=== PATIENT | male | born 1945 | race Caucasian/White ===

== ENCOUNTER 2016-07-17 17:17 | Observation (INO) | payer BC ==
[2016-07-17] MEDS ORDERED: ALBUTEROL SULFATE/IPRATROPIUM 3 ML NEBU IH ONE ×3 (17:19→17:28)
[2016-07-17] MEDS ORDERED: METHYLPREDNISOLONE SOD SUCC/PF 40 MG/ML VIAL IV ONE (17:28)
[2016-07-17] MEDS ORDERED: ALBUTEROL SULFATE 2.5 MG/3 ML VIAL.NEB IH ONE (17:43)
[2016-07-17] MEDS ORDERED: METHYLPREDNISOLONE SOD SUCC/PF 40 MG/ML VIAL ONE (17:48)
[2016-07-17] MEDS ORDERED: ALBUTEROL SULFATE 2.5 MG/0.5 ML VIAL.NEB IH ONE (17:49)
[2016-07-17 18:04] LABS: INR 0.96 INR (0.90-1.10)
[2016-07-17 18:10] LABS: Albumin * 3.9 gm/dl (3.4-5.0); Anion Gap 13.5 mmol/L (6.8-13.8); BUN/Creatinine Ratio 12.5 (9.0-21.6); Bilirubin, Total 0.2 mg/dL (0.0-1.1); Ca. Corrected For Albumin 9.5 mg/dL (8.4-10.2); Calcium * 9.7 mg/dL (7.9-10.9); Carbon Dioxide 27.1 mmol/L (24-32.6); Potassium 4.6 mmol/L (3.4-4.6); Total Protein 8.2 gm/dL (6.2-8.2)
[2016-07-17 18:13] LABS: Troponin I 0.07 ng/ml (0.00-0.10)
--- NOTE | 2016-07-17 18:35 | ERNOTE ---
Dyspnea - Date Date of Service: 07/17/16 - General Presenting Symptoms: shortness of breath Time Seen by Provider: 07/17/16 17:27 Source: patient, family Exam Limitations: clinical condition - Immun/Allergies/Home Medications Immunizations: IMMUNIZATION HX Immunizations Up to Date Yes History of Influenza Vaccine Yes Hx Pneumococcal Vaccination Yes Allergies/Adverse Reactions: Allergies Penicillins Allergy (Unknown, Verified 07/17/16 18:15) Sulfa (Sulfonamide Antibiotics) Allergy (Unknown, Verified 07/17/16 18:15) Home Medications: HOME MEDICATIONS Cholecalciferol (Vitamin D3) [Vitamin D3] 2,000 unit PO DAILY 12/01/14 [Last Taken Unknown] Tiotropium [place] [Spiriva] 18 mcg IH DAILY 12/01/14 [Last Taken Unknown] Sertraline HCl [Zoloft] 150 mg PO DAILY #60 tablet 12/04/14 [Last Taken Unknown] Simvastatin [Zocor] 40 mg PO HS #90 tablet 12/04/14 [Last Taken Unknown] Roflumilast [Daliresp] 500 mcg PO DAILY #30 tablet 12/28/14 [Last Taken Unknown] predniSONE [Prednisone] 40 mg PO DAILY #7 tablet 12/28/14 [Last Taken Unknown] Advair 250-50 Diskus 07/17/16 [Last Taken Unknown] Atenolol [Tenormin] 50 mg PO BID 07/17/16 [Last Taken Unknown] Diltiazem HCl [Cardizem Cd] 240 mg PO BID 07/17/16 [Last Taken Unknown] Fluticasone/Salmeterol [Advair 500-50 Diskus] 1 puff IH BID 07/17/16 [Last Taken Unknown] Vit D3-Vit K/[place]/Hops [Ostera Tablet] 1 each PO 07/17/16 [Last Taken Unknown] - History of Present Illness Narrative: Patient presents to the ED for SOB via EMS. He relates he has COPD and uses home oxygen at night. He was building a [employer] and was exposed to the smoke and dust from the woodwork on Sunday. Ever since then he has been having increasing SOB. No CP. No fever. No abdominal pain. No bleeding, blood in stool or vomit. He has had this happen in the past and had to be placed on BiPap once in the past. He has not seen anyone else for this. He states he feels anxious right now which happens when his breathing gets bad. Severity: severe Treatment REGISTERED NURSE NURSERY: paramedics Initiating event: Reports: exposure to smoke Frequency of episodes: Reports: occassional episodes Modifying Factors - (Improves): Reports: albuterol Modifying Factors (Worsens): Reports: activity Associated Symptoms-Dyspnea: Reports: wheezing. Denies: fever/chills, chest pain/discomfort, ankle/leg swelling Prior Treatment: Denies: recently seen Review of Systems - Review of Systems Constitutional: Absent: fever Respiratory: Present: See HPI Cardiology: Absent: chest pain Gastrointestinal/Abdominal: Absent: abdominal pain All Other Systems: All systems neg except as marked - Patient's Past Medical History Patient History - Medical: Anemia, Alcohol Abuse, Anxiety, Depression Patient History - Cardiac/Respiratory: Atrial Fibrillation, COPD, Hypertension, Home O2 Use Patient History - Cancer: No Hx of Cancer Patient History - Surgical Procedures: No surgical history Patient History - Other: None - Family History Father Family History - Medical: Mother Family History - Medical: Family History - Cardiac/Respiratory: Coronary Heart Disease - Social History Living Situations: home Abuse History: No History of abuse Psych History: Hx of Anxiety Smoking Status: Former smoker Alcohol Use: heavy Drug Use: none - Immunizations Immunizations Up to Date: Yes Hx Pneumococcal Vaccination: Yes History of Influenza Vaccine: Yes Physical Exam - Physical Exam General Appearance: Present: alert, moderate distress Eye Exam: Normal inspection: bilateral, PERRL: bilateral Ears, Nose, Throat: Present: normal ENT inspection Neck: Present: normal inspection Respiratory: Present: respiratory distress, accessory muscle use, wheezing. Absent: stridor Cardiovascular/Chest: Present: normal peripheral pulses, tachycardia Gastrointestinal/Abdominal: Present: normal bowel sounds, nondistended, soft Back Exam: Present: normal range of motion Extremity Exam: Present: normal inspection, other - No findings of DVT. Neurological Exam: Present: alert, no motor/sensory deficits Skin Exam: Present: normal color. Absent: skin rash ED Progress - Results and Orders Patient's Lab Results:: I have reviewed the patient's lab results. - Vital Signs Patient's Vital Signs:: I have reviewed the patient's vital signs. Vital Signs: Vital Signs 07/17/16 07/17/16 07/17/16 17:20 17:30 17:43 Temperature 37.5 C Pulse Rate 104 H 102 H 96 Respiratory 29 H 27 H 25 H Rate Blood Pressure 184/109 175/88 O2 Sat by Pulse 96 98 98 Oximetry 07/17/16 07/17/16 07/17/16 17:55 18:03 18:12 Temperature Pulse Rate 93 94 91 Respiratory 29 H 26 H 28 H Rate Blood Pressure 175/88 O2 Sat by Pulse 96 95 95 Oximetry 07/17/16 18:21 Temperature Pulse Rate 90 Respiratory 26 H Rate Blood Pressure O2 Sat by Pulse 95 Oximetry - EKG EKG: nonspecific ST T wave changes EKG read: Interp. by me EKG Comments: Sinus tachycardia. Non-specific ST/T wave changes. No STEMI. - X-Ray X-Ray #1 X-Ray: chest Interpretation: Interp. by me, Reviewed by me X-ray Comments: Hyperinfaltion. No PTX noted. No pneumonia - Progress/Reassessment Chief Complaint: Dyspnea Progress:: Improved Progress Note-Subjective: 07/17/16 18:31 patient immediately placed on BiPap. Given steroid and nebs. Significantly improved but still with wheezing throughout. I am not sure if the HGB is accurate. Clinically he has had no bleeding or blood in stool. D/W Hospitalist , I will order a re-check HGB to see if the first one was accurate. Hospitalist will admit, D/W Flora for Dr Sharma. Initially I had placed an order for ICU but bed placement felt floor was appropriate. Clinically he is much improved but still on BiPap. D/W patient and family. Departure Clinical Impression: COPD exacerbation - Departure Disposition: [facility] Condition: Fair Referrals: Emerald Wang MD [Primary Care Provider] -
[2016-07-17 19:40] LABS: Hematocrit 37.3 % (42.0-52.0); Hemoglobin 12.9 gm/dL (13.5-18.0); Mean Corpuscular Hemoglobin 32.2 pg (27-31); Red Blood Count 4.01 M/mm3 (4.7-6.0); White Blood Count 18.7 K/mm3 (4.0-10.5)
[2016-07-17 19:41] LABS: Mean Corpuscular Hgb Conc 34.6 g/dl (32-36); Neutrophil % 84.6 % (42-75.0); Platelet Count 212 K/mm3 (150-450); Red Cell Distribution Width 13.8 % (11.5-14.0)
[2016-07-17 19:42] LABS: Neutrophil # 15.8 K/mm3 (1.3-6.0)
--- NOTE | 2016-07-17 20:41 | HP ---
Chief Complaint - Chief Complaint Date of Service: 07/17/16 Time of Service: 20:05 Chief Complaint: " SOB". Source of HPI- Pt; reliable, Pt's spouse Ben, ER provider notes. History of Present Illness: Mr. Lujan is a 71-yr-old WM pt of Dr. Wang with a PMH of : Alcohol dependence, Anemia, Anxiety, CHF, COPD,Depression, HTN, HLD, &Pseudogout. History is mostly provided by the spouse as pt is on BIPAP and appears fatigued. She states that pt had been feeling good and in his normal state of wellness until this past Sunday. He was in garage most of the day on Sunday working on woodwork projects. He started feeling SOB later on Sunday and thought it was from inhaling saw dust. On Sunday, he continued feeling SOB and he used inhalers round the clock. Today, she says, he continued feeling SOB and the inhaler and breathing treatments were not providing any relief. He got extremely SOB with Wheezing and called the EMS for him and was brought to the [facility] ER. He denies fevers, chills. He denies any recent URI symptoms and has not been around ill contact. He has a non-productive cough but says it's not any worse. He finished a Prednisone course about 2 weeks ago for worsening COPD symptoms. He quit smoking 19 yrs ago. He is chronically on 2 L of oxygen at night. He states that he drinks about 10-12 glasses of hard liquor (Scotch) daily. At the ED today, the CXR did not have any acute cardiopulmonary findings. However, he was noted to have laboured breathing with Exp/insp. Wheezing. His ABGs showed uncompensated Respiratory acidosis and he required to to be placed on BIPAP. His CBC also showed he had an elevated WBC of 18,700 with a Left shift. He had a low grade fever 37.6. At the time of physical exam, he is noted to tolerate the BIPAP well, is in no distress, but has exp/ins. wheezing throughout in his Lungs. He will be admitted under observation status due to his exacerbation of his COPD. - Patient's Past Medical History Patient History - Medical: Alcohol Abuse, Anxiety, Depression, Other - Pseudogout Patient History - Cardiac/Respiratory: Atrial Fibrillation, CHF, COPD, Hypertension, Hyperlipidemia, Home O2 Use Patient History - Cancer: No Hx of Cancer Patient History - Surgical Procedures: No surgical history Patient History - Other: None - Family History Father Family History - Medical: Family History - Cancer: Lung Mother Family History - Medical: Family History - Cardiac/Respiratory: Coronary Heart Disease - Social History Living Situations: spouse Abuse History: No History of abuse Psych History: Hx of Anxiety, Hx of Depression Smoking Status: Former smoker Have you smoked in the past 12 months: No Do you dip or chew tobacco: No Patient requests Smoking Cessation Consult: No Initiate information on Smoking Cessation: No Alcohol Use: heavy Drug Use: none - Immunizations Immunizations Up to Date: Yes Hx Pneumococcal Vaccination: Yes History of Influenza Vaccine: Yes Review Of Systems (GEN) - Review of Systems Generalized/Overall Review: Present: Fatigue. Absent: Weakness, Chills, Fever EENTM: Absent: Eye Pain Respiratory: Present: Cough, Shortness of Breath, Wheezing. Absent: Orthopnea, Stridor Cardiac: Absent: Chest Pain, Edema, Palpitations, Syncope Abdominal: Absent: Nausea, Vomiting, Hematemesis, Abdominal Pain Genitourinary: Absent: Burning, Itching, Urgency, Frequency, Hesitancy, Nocturia , Hematuria Musculoskeletal: Present: Gout. Absent: Joint Pain, Back Pain Neurological: Absent: Headache, Anxiety, Depressed Skin: Absent: Dryness, Lesions, Lumps Endocrine: Present: Intolerance to Heat, Flushing. Absent: Increased Thirst Misc: All systems neg except as marked Immunizations: IMMUNIZATION HX Immunizations Up to Date Yes History of Influenza Vaccine Yes Hx Pneumococcal Vaccination Yes Allergies/Adverse Reactions: Allergies Allergy/AdvReac Type Severity Reaction Status Date / Time Penicillins Allergy Unknown Verified 07/17/16 19:13 Sulfa (Sulfonamide Allergy Unknown Verified 07/17/16 19:13 Antibiotics) Home Medications: HOME MEDICATIONS Cholecalciferol (Vitamin D3) [Vitamin D3] 2,000 unit PO DAILY 12/01/14 [Last Taken Unknown] Tiotropium [place] [Spiriva] 18 mcg IH DAILY 12/01/14 [Last Taken Unknown] Sertraline HCl [Zoloft] 150 mg PO DAILY #60 tablet 12/04/14 [Last Taken Unknown] Simvastatin [Zocor] 40 mg PO HS #90 tablet 12/04/14 [Last Taken Unknown] Roflumilast [Daliresp] 500 mcg PO DAILY #30 tablet 12/28/14 [Last Taken Unknown] Atenolol [Tenormin] 50 mg PO BID 07/17/16 [Last Taken Unknown] Cyanocobalamin (Vitamin B-12) [Vitamin B12] 1,000 mcg PO DAILY 07/17/16 [Last Taken Unknown] Diltiazem HCl [Cardizem Cd] 240 mg PO BID 07/17/16 [Last Taken Unknown] Fluticasone/Salmeterol [Advair 500-50 Diskus] 1 puff IH BID 07/17/16 [Last Taken Unknown] Naltrexone HCl [ReVia] 25 mg PO DAILY 07/17/16 [Last Taken Unknown] predniSONE [Prednisone] See Taper PO DAILY 07/17/16 [Last Taken Unknown] Exam - Exam Vital Signs: Vital Signs - Last Taken Temp 37.6 C H 07/17/16 18:59 Pulse 83 07/17/16 18:59 Resp 24 H 07/17/16 18:59 BP 132/57 07/17/16 18:59 Pulse Ox 96 07/17/16 18:59 Constitutional: Present: Alert, Oriented x3, No distress ENT Exam: Present: normal ENT inspection. Absent: nasal congestion, nasal drainage, pharyngeal erythema Eye Exam: bilateral eye: normal inspection, PERRL Neck: Present: full range of motion, supple, normal inspection Back Exam: Present: no CVA tenderness Breasts: Present: Exam deferred Respiratory: Present: no accessory muscle use, wheezing, expiration (prolonged) , inspiration Cardiovascular/Chest: Present: normal peripheral pulses, regular rate, rhythm, no edema, no murmur Abdomen: Present: Normal bowel sounds, soft, nontender /Rectal: Present: Exam deferred Extremity: Present: normal range of motion, non-tender, normal inspection, no pedal edema Skin Exam: Present: no cyanosis, diaphoresis Neurologic: Present: alert, oriented x 3. Absent: dizzy/light-headedness Appearance: Present: appropriate appearance, appropriate insight Eye contact: Present: cooperative, good eye contact, normal speech Thoughts: Present: no apparent hallucination Diagnostic Studies: Abnormal Lab Results 07/17/16 Range/Units 18:30 Hgb 11.7 L (13.5-18.0) gm/dL Laboratory Results WBC 18.7 K/mm3 (4.0-10.5) H 07/17/16 17:40 RBC 4.01 M/mm3 (4.7-6.0) L 07/17/16 17:40 Hgb 11.7 gm/dL (13.5-18.0) L 07/17/16 18:30 Hct 37.3 % (42.0-52.0) L 07/17/16 17:40 MCV 93.0 fl (78-100) 07/17/16 17:40 MCH 32.2 pg (27-31) H 07/17/16 17:40 MCHC 34.6 g/dl (32-36) 07/17/16 17:40 RDW 13.8 % (11.5-14.0) 07/17/16 17:40 Plt Count 212 K/mm3 (150-450) 07/17/16 17:40 MPV 9.0 fl (6.0-9.5) 07/17/16 17:40 Immature Gran % (Auto) 1.10 % (0.001-0.429) H 07/17/16 17:40 Immature Gran # (Auto) 0.20 K/mm3 (0.000-0.0310) H 07/17/16 17:40 Neutrophils % 84.6 % (42-75.0) H 07/17/16 17:40 Lymphocytes % 4.4 % (20-51) L 07/17/16 17:40 Monocytes % 5.4 % (0.0-9) 07/17/16 17:40 Eosinophils % 4.0 % (0.0-3.0) H 07/17/16 17:40 Basophils % 0.5 % (0.0-1.0) 07/17/16 17:40 Nucleated RBC % 0.0 k/mm3 (0-1) 07/17/16 17:40 Neutrophils # 15.8 K/mm3 (1.3-6.0) H 07/17/16 17:40 Lymphocytes # 0.8 k/mm3 (1.5-3.5) L 07/17/16 17:40 Monocytes # 1.0 k/mm3 (0.0-1.0) 07/17/16 17:40 Eosinophils # 0.8 k/mm3 (0.0-0.7) H 07/17/16 17:40 Absolute Basophils 0.1 k/mm3 (0.0-0.1) 07/17/16 17:40 PT 10.0 Seconds (9.4-11.4) 07/17/16 17:40 INR (Anticoag Therapy) 0.96 INR (0.90-1.10) 07/17/16 17:40 pCO2 49.5 mmHg (35.0-48.0) H 07/17/16 17:35 pO2 131.4 mmHg (83.0-108.0) H 07/17/16 17:35 HCO3 22.7 mmol/L (21.0-28.0) 07/17/16 17:35 Total CO2 24.2 mmol/L (19.0-24.0) H 07/17/16 17:35 Base Excess -4.3 mmol/L (-2.0-3.0) L 07/17/16 17:35 ABG pH 7.28 (7.35-7.45) L 07/17/16 17:35 ABG O2 Sat (Measured) 98.2 % (94.0-98.0) H 07/17/16 17:35 Sodium 135 mmol/L (132-142) 07/17/16 17:40 Plasma Sodium 135 mmol/L (130-142) 07/17/16 17:40 Potassium 4.6 mmol/L (3.4-4.6) 07/17/16 17:40 Chloride 99 mmol/L (97-106) 07/17/16 17:40 Carbon Dioxide 27.1 mmol/L (24-32.6) 07/17/16 17:40 Anion Gap 13.5 mmol/L (6.8-13.8) 07/17/16 17:40 BUN 13 mg/dL (6-23) 07/17/16 17:40 Creatinine 1.04 mg/dL (0.4-1.4) 07/17/16 17:40 Est GFR (Non-Af Amer) 75 mL/min (60-130) D 07/17/16 17:40 BUN/Creatinine Ratio 12.5 (9.0-21.6) 07/17/16 17:40 Random Glucose 116 mg/dL (70-110) H 07/17/16 17:40 Calcium 9.7 mg/dL (7.9-10.9) 07/17/16 17:40 Calcium Adj for Albumin 9.5 mg/dL (8.4-10.2) 07/17/16 17:40 Total Bilirubin 0.2 mg/dL (0.0-1.1) 07/17/16 17:40 AST 18 U/L (0-48) 07/17/16 17:40 ALT 24 U/L (19-67) 07/17/16 17:40 Alkaline Phosphatase 64 U/L (50-170) 07/17/16 17:40 Troponin I 0.070 ng/ml (0.00-0.10) 07/17/16 17:40 Total Protein 8.2 gm/dL (6.2-8.2) 07/17/16 17:40 Albumin 3.9 gm/dl (3.4-5.0) 07/17/16 17:40 Blood Type O Positive 07/17/16 18:30 Antibody Screen Negative 07/17/16 18:30 Assessment/Plan - Assessment/Plan (1) COPD exacerbation Assessment: Mr. Lujan reported dyspnea that was out of his normal variation, was noted to have laboured breathing and he required to be placed on BIPAP due to Uncompensated Respiratory acidosis on the ABGs. He received treatment with Solumedrol at the ED. The CXR did not show any new infiltrate, however, he had an elevated WBC with a left shift. He also had a low grade fever of 37.6. Given his considerable comorbidities, age, current alcohol use, elevated WBC with a left shift, It may be beneficial to cover him with IV antibiotics to prevent progression to Pneumonia. Will also start solumedrol due to exp/ins. wheezing, and scheduled duoneb treatments. Will repeat ABGs & trend CBC in am. Problem: Acute (2) Uncompensated respiratory acidosis Assessment: Will administer oxygen to maintain SaO2 of 88-92%. Will stay on the BIPAP the rest of the night and recheck ABGs in am. Problem: Acute (3) A-fib Assessment: Place on remote telemetry monitoring- Continue Diltiazem. Problem: Chronic (4) Alcohol dependence Assessment: Will monitor for withdrawals- give PRN medications. Problem: Acute (5) Dependence on supplemental oxygen Assessment: Is chronically on 2 L at night. Problem: Chronic (6) Hypertension Assessment: Stable- On Atenolol. Problem: Chronic Qualifiers: Hypertension type: essential hypertension Qualified Code(s): I10 - Essential (primary) hypertension
[2016-07-17] MEDS ORDERED: SIMVASTATIN 40 MG TABLET PO SCH (21:00)
[2016-07-17] MEDS ORDERED: LEVOFLOXACIN/D5W 750 MG/150 ML BAG IV SCH (21:00)
[2016-07-17] MEDS: FLUTICASONE/SALMETEROL 14 PUFF DISK.W.DEV IH SCH (21:21)
[2016-07-17] MEDS: METHYLPREDNISOLONE SOD SUCC 60 MG in WATER FOR INJ.,BACTERIOSTATIC 0 ML IV SCH (21:21)
[2016-07-17] MEDS: ATENOLOL 50 MG TABLET PO SCH (21:32)
[2016-07-17] MEDS: DILTIAZEM HCL 240 MG CAP.SR.24H PO SCH (21:32)
[2016-07-17] MEDS: ALBUTEROL SULFATE/IPRATROPIUM 3 ML NEBU IH SCH ×2 (22:16→22:48)
[2016-07-18] MEDS: METHYLPREDNISOLONE SOD SUCC 60 MG in WATER FOR INJ.,BACTERIOSTATIC 0 ML IV SCH ×2 (02:40→08:38)
[2016-07-18] MEDS: ALBUTEROL SULFATE/IPRATROPIUM 3 ML NEBU IH SCH ×4 (02:58→15:41)
[2016-07-18 05:50] LABS: Hematocrit 33.2 % (42.0-52.0); Hemoglobin 11.5 gm/dL (13.5-18.0); Mean Cell Volume 92.7 fl (78-100); Mean Corpuscular Hemoglobin 32.1 pg (27-31); Mean Corpuscular Hgb Conc 34.6 g/dl (32-36); Neutrophil % 93.5 % (42-75.0); Platelet Count 126 K/mm3 (150-450); Red Blood Count 3.58 M/mm3 (4.7-6.0); Red Cell Distribution Width 13.4 % (11.5-14.0); White Blood Count 4.3 K/mm3 (4.0-10.5)
[2016-07-18] MEDS: FLUTICASONE/SALMETEROL 14 PUFF DISK.W.DEV IH SCH (07:52)
[2016-07-18] MEDS: DILTIAZEM HCL 240 MG CAP.SR.24H PO SCH (08:38)
[2016-07-18] MEDS: ATENOLOL 50 MG TABLET PO SCH (08:39)
[2016-07-18] MEDS ORDERED: CHOLECALCIFEROL 1,000 UNIT CAPSULE PO SCH (09:00)
[2016-07-18] MEDS ORDERED: SERTRALINE HCL 100 MG TABLET PO SCH (09:00)
[2016-07-18] MEDS ORDERED: TIOTROPIUM BROMIDE 5 CAP INHALER IH SCH (09:00)
[2016-07-18] MEDS ORDERED: SERTRALINE HCL PO SCH ×2 (09:00)
[2016-07-18] MEDS ORDERED: CYANOCOBALAMIN 1,000 MCG TABLET PO SCH (09:00)
[2016-07-18] MEDS ORDERED: NALTREXONE HCL 50 MG TABLET PO SCH (09:00)
[2016-07-18] MEDS ORDERED: ROFLUMILAST 500 MCG TABLET PO SCH (09:00)
[2016-07-18] MEDS ORDERED: predniSONE 20 MG TABLET PO STA (15:07)
--- NOTE | 2016-07-18 15:07 | DS ---
(1) COPD with acute exacerbation Diagnosis(s): most likely due to bronchitis Problem: Acute (2) Alcohol dependence Problem: Chronic Qualifiers: Substance use status: unspecified alcohol-induced disorder Qualified Code(s ): F10.29 - Alcohol dependence with unspecified alcohol-induced disorder (3) Anemia Problem: Chronic Qualifiers: Anemia type: unspecified type Qualified Code(s): D64.9 - Anemia, unspecified (4) Hypertension Problem: Chronic Qualifiers: Hypertension type: essential hypertension Qualified Code(s): I10 - Essential (primary) hypertension Description of Stay: Date of admission: 07/17/2016. Date of discharge: 07/18/2016. DISCHARGE SUMMARY: Mr.Nickalas Lujan is a 71 yr old white male with a H/O COPD with 2L at HS, EtOH abuse, HTN, HLD, Chronic Afib now in NSR, who came to the ER because of SOB and difficulty in breathing for the last 2-3 days. Significant findings were WBC 18.7K, PH 7.28 , pCO2 49.5 and H/H 11.7/37.3. Patient was treated with IV antibitiocs, IV solumedrol, breathing treatments and BiPAP with improvement in symptoms. WBC reduced to 4.3 K on 07/18/16. Patient was d/júnior on a tapering dose on prednisone and levofloxin 500 mg for 5 days. Also advised to use pulmocort respules at the beginning of an infection. patient did not start naltrexone. Stable at the time of discharge. Procedures Performed: none Discharge Disposition: Home self care Disposition: Home self-care Condition: Undetermined Discharge Activity: Activity as tolerated Discharge Diet: Low fat/chol, High Fiber Referrals: Emerald Wang MD [Primary Care Provider] - Problem Oriented Discharge Instructions to Patient/Family: Chronic Obstructive Pulmonary Disease Exacerbation, [id number] Additional Patient Instructions (free text): Use Budenoside respules only during when you get sick when needing prednisone Maximum doses twice a day; can be mixed with albuterol. Rinse mouth after using as it is a steroid. Do not use it for more than 5 days. Refills on prednisone 2 and a refill on antibiotics have been given. Have yogurt twice a day[4-6 ounces] as it increases your immunity. Continue to use oxygen at 2 L at night. Continue albuterol treatments every 4-6 hours for the next 5 days; then as needed. Appointment with Dr. Abrams in 2-3 weeks. 08/02 at 1:15 AA appointment numbers: [place], ; [place]: [phone]; [place]: [phone] Prescriptions (Any new or edited meds): Budesonide [Pulmicort Respules] 0.5 mg IH BID #60 vial.neb Levofloxacin [Levaquin] 500 mg PO DAILY #5 tablet predniSONE [Prednisone] 20 mg PO DAILY #15 tablet Complete Home Medications List: Complete Home Medication List: Cholecalciferol (Vitamin D3) [Vitamin D3] 2,000 unit PO DAILY 12/01/14 Tiotropium [place] [Spiriva] 18 mcg IH DAILY 12/01/14 Sertraline HCl [Zoloft] 150 mg PO DAILY #60 tablet 12/04/14 Simvastatin [Zocor] 40 mg PO HS #90 tablet 12/04/14 Roflumilast [Daliresp] 500 mcg PO DAILY #30 tablet 12/28/14 Atenolol [Tenormin] 50 mg PO BID 07/17/16 Cyanocobalamin (Vitamin B-12) [Vitamin B12] 1,000 mcg PO DAILY 07/17/16 Diltiazem HCl [Cardizem Cd] 240 mg PO BID 07/17/16 Fluticasone/Salmeterol [Advair 500-50 Diskus] 1 puff IH BID 07/17/16 Albuterol Sulfate/Ipratropium [Duoneb 2.5-0.5MG/3ML Soln] 3 ml IH Q4HRT nebu Budesonide [Pulmicort Respules] 0.5 mg IH BID #60 vial.neb 07/18/16 Levofloxacin [Levaquin] 500 mg PO DAILY #5 tablet 07/18/16 predniSONE [Prednisone] 20 mg PO DAILY #15 tablet 07/18/16
[2016-07-18 15:46] VITALS: BP 126/62
== END 2016-07-18 16:50 | disposition home or self-care (01) ==
LOC: ER 17:17 → UNDOADMOB 18:24 → MS 18:24
PROVIDERS: ADMIT Nurse Practitioner Critical Care Medicine; ATTEND Internal Medicine
PROC: 4A033R1 Measurement of Arterial Saturation, Peripheral, Percutaneous Approach (ICD-10-PCS; principal; 2016-07-17)
DX: J44.1 Chronic obstructive pulmonary disease with (acute) exacerbation (principal); Z87.891 Personal history of nicotine dependence; E87.2 Acidosis; I48.2 Chronic atrial fibrillation; F10.20 Alcohol dependence, uncomplicated; I10 Essential (primary) hypertension; D64.9 Anemia, unspecified; E78.5 Hyperlipidemia, unspecified
CPT/HCPCS: 36415; 36600; 71010; 80053; 82803; 84484; 85018; 85025; 85610; 86850; 86900; 87040; 93005; 94640; 94760; 96374; 96376; 99284; G0378